=== PATIENT | male | born 1975 | race American Indian/Alaskan Native ===

== ENCOUNTER 2020-11-28 10:29 | Emergency (ER) | payer OTHER ==
[2020-11-28] MEDS ORDERED: ASPIRIN 325 MG TAB PO ONE (10:44)
--- NOTE | 2020-11-28 10:47 | Event Note ---
ED Screening Note ED Screening Note: pt is a 45 yo male who presents to the ED with c/o bilateral shoulder pain that began yesterday evening, he states as the evening progressed the pain moved into the bilateral chest. he states it feels like a pressure with occasional sharp needles. he denies the pain radiating down the arms or into the back. he denies diaphoresis, n/v/d, fever. he states he did not feel short of breath but had to "focus on his breathing due to the pressure in his chest" no known pmhx. no known allergies. non smoker. denies family cardiac hx. This initial assessment/diagnostic orders/clinical plan/treatment(s) is/are subject to change based on patients health status, clinical progression and re- assessment by fellow clinical providers in the ED. Further treatment and workup at subsequent clinical providers discretion. Patient/guardian urged not to elope from the ED as their condition may be serious if not clinically assessed and managed. Initial orders include: cp protocol
--- NOTE | 2020-11-28 11:14 | XRay Report ---
CHEST 2 VIEWS INDICATION / CLINICAL INFORMATION: Chest Pain. COMPARISON: None available. FINDINGS: SUPPORT DEVICES: None. HEART / MEDIASTINUM: No significant abnormality. LUNGS / PLEURA: No significant pulmonary or pleural abnormality. No pneumothorax. ADDITIONAL FINDINGS: No significant additional findings. IMPRESSION: 1. No acute findings. Signer Name: Pipo Hoang MD Signed: 11/28/2020 11:09 AM Workstation Name: [email or web address]
[2020-11-28 11:22] LABS: Basophils # (Auto) 0.1 K/mm3 (0.0-0.1); Basophils % (Auto) 0.8 % (0.0-1.8); Eosinophils # (Auto) 0.2 K/mm3 (0.0-0.4); Eosinophils % (Auto) 1.3 % (0.0-4.3); Hematocrit 41.9 % (35.5-45.6); Hemoglobin 13.8 gm/dl (11.8-15.2); Lymphocytes # (Auto) 3.1 K/mm3 (1.2-5.4); Mean Corpuscular HGB Conc 33 % (32-34); Mean Corpuscular Volume 81 fl (84-94); Monocytes # (Auto) 1.2 K/mm3 (0.0-0.8); Monocytes % (Auto) 10.2 % (0.0-7.3); Platelet Count 343 K/mm3 (140-440); Red Blood Count 5.15 M/mm3 (3.65-5.03); Red Cell Distribution Width 15.1 % (13.2-15.2)
--- NOTE | 2020-11-28 11:22 | Emergency Department Report ---
ED General Adult HPI - General Chief complaint: Chest Pain Stated complaint: CP Time Seen by Provider: 11/28/20 10:44 Source: patient Mode of arrival: Ambulatory Limitations: No Limitations - History of Present Illness Initial comments: Patient is a 45-year-old male with no past medical history presents emergency department for evaluation of pain in both shoulders for the past several days which is worse with positional change. Patient notes vigorous physical activity via a kickball league he runs and Xetal he runs. Patient states he sometimes feels the pain in his chest though this is not exertional nor pleuritic. Patient describes intermittent right calf pain times several months. - Related Data Previous Rx's Medication Instructions Recorded Last Taken Type diazePAM TAB [Valium] 5 mg PO Q8H PRN #10 tab 11/28/20 Unknown Rx Allergies Allergy/AdvReac Type Severity Reaction Status Date / Time No Known Allergies Allergy Unverified 11/28/20 10:39 ED Review of Systems ROS: Stated complaint: CP Other details as noted in HPI Comment: All other systems reviewed and negative ED Past Medical Hx - Past Medical History Previous Medical History?: No - Surgical History Past Surgical History?: No - Social History Smoking Status: Never Smoker Substance Use Type: None - Medications Home Medications: Home Medications Medication Instructions Recorded Confirmed Last Taken Type diazePAM TAB [Valium] 5 mg PO Q8H PRN #10 tab 11/28/20 Unknown Rx ED Physical Exam - General Limitations: No Limitations General appearance: alert, in no apparent distress - Head Head exam: Present: atraumatic, normocephalic - Eye Eye exam: Present: normal appearance - ENT ENT exam: Present: mucous membranes moist - Neck Neck exam: Present: normal inspection - Respiratory Respiratory exam: Present: normal lung sounds bilaterally, other ((+) cough). Absent: respiratory distress - Cardiovascular Cardiovascular Exam: Present: regular rate, normal rhythm. Absent: systolic murmur, diastolic murmur, rubs, gallop - GI/Abdominal GI/Abdominal exam: Present: soft, normal bowel sounds - Rectal Rectal exam: Present: deferred - Extremities Exam Extremities exam: Present: normal inspection - Back Exam Back exam: Present: normal inspection - Neurological Exam Neurological exam: Present: alert, oriented X3 - Psychiatric Psychiatric exam: Present: normal affect, normal mood - Skin Skin exam: Present: warm, dry, intact, normal color. Absent: rash ED Course Vital Signs 02/08/21 02/08/21 02/08/21 11:15 12:15 13:18 Pulse Rate 88 88 82 Respiratory 16 18 17 Rate Blood Pressure 140/93 156/110 129/77 [Left] O2 Sat by Pulse 99 97 99 Oximetry - Reevaluation(s) Reevaluation #1: 11/28/20 13:58 Patient noted to have cough during physical exam, notes cough is of same duration as pain. Reevaluation #2: 11/28/20 13:59 Patient treated with Toradol 30 mg IM x1. On reevaluation, patient in no acute distress. Heart score, PERC rule, x-ray, ultrasound, labs, EKG all reassuring. Advised patient follow-up with primary care physician for reevaluation, noting simultaneous onset of cough may indicate upper respiratory infection causing myalgias and recommended COVID-19 testing. Additionally advised patient may require further imaging of neck or T-spine for persistent discomfort. Advised patient return to the emergency department for any persistent or worsening symptoms. ED Medical Decision Making - Lab Data Result diagrams: 11/28/20 11:01 11/28/20 11:01 Lab Results 11/28/20 11/28/20 Range/Units 11:01 11:01 WBC 11.7 H (4.5-11.0) K/mm3 RBC 5.15 H (3.65-5.03) M/mm3 Hgb 13.8 (11.8-15.2) gm/dl Hct 41.9 (35.5-45.6) % MCV 81 L (84-94) fl MCH 27 L (28-32) pg MCHC 33 (32-34) % RDW 15.1 (13.2-15.2) % Plt Count 343 (140-440) K/mm3 Lymph % (Auto) 27.0 (13.4-35.0) % [place] % (Auto) 10.2 H (0.0-7.3) % Eos % (Auto) 1.3 (0.0-4.3) % Baso % (Auto) 0.8 (0.0-1.8) % Lymph # (Auto) 3.1 (1.2-5.4) K/mm3 [place] # (Auto) 1.2 H (0.0-0.8) K/mm3 Eos # (Auto) 0.2 (0.0-0.4) K/mm3 Baso # (Auto) 0.1 (0.0-0.1) K/mm3 Seg Neutrophils % 60.7 (40.0-70.0) % Seg Neutrophils # 7.1 (1.8-7.7) K/mm3 Sodium 139 (137-145) mmol/L Potassium 3.9 (3.6-5.0) mmol/L Chloride 102.5 (98-107) mmol/L Carbon Dioxide 28 (22-30) mmol/L Anion Gap 12 mmol/L BUN 12 (9-20) mg/dL Creatinine 0.9 (0.8-1.3) mg/dL Estimated GFR > 60 ml/min BUN/Creatinine Ratio 13 % Glucose 100 (75-100) mg/dL Calcium 9.1 (8.4-10.2) mg/dL Total Bilirubin 0.70 (0.1-1.2) mg/dL AST 109 H (5-40) units/L ALT 46 (7-56) units/L Alkaline Phosphatase 90 (35-129) units/L Troponin T < 0.010 (0.00-0.029) ng/mL NT-Pro-B Natriuret Pep 49.47 (0-450) pg/mL Total Protein 7.1 (6.3-8.2) g/dL Albumin 4.3 (3.9-5) g/dL Albumin/Globulin Ratio 1.5 % Vital Signs 11/28/20 11/28/20 11/28/20 11:15 12:15 13:18 Pulse Rate 88 88 82 Respiratory 16 18 17 Rate Blood Pressure 140/93 156/110 129/77 [Left] O2 Sat by Pulse 99 97 99 Oximetry - EKG Data -: EKG Interpreted by Me (Sinus rhythm at 87, no ST-T changes, normal QRS) - Medical Decision Making PERC 0 Critical Care Time: No Critical care attestation.: If time is entered above; I have spent that time in minutes in the direct care of this critically ill patient, excluding procedure time. ED Disposition Clinical Impression: Bilateral shoulder pain, Chest pain, Upper back pain Disposition: - TO HOME OR SELFCARE Is pt being admited?: No Condition: Stable Instructions: Shoulder Pain, Nonspecific Chest Pain, Adult, Chest Pain (ED) Additional Instructions: Follow-up with primary care doctor in 1 to 2 days for reevaluation. Please note further imaging including MRI of your thoracic and/or cervical spine may be required for definitive diagnosis. Return to the emergency department for wors ening symptoms. Prescriptions: diazePAM TAB [Valium] 5 mg PO Q8H PRN #10 tab PRN Reason: Pain , Severe (7-10) Referrals: CATHY FROST MD [Primary Care Provider] - 3-5 Days HEART Score - HEART Score History: Slightly suspicious EKG: Normal Age: 45-65 Risk factors: No known risk factors Troponin: Troponin T < 0.010 ng/mL (0.00-0.029) 11/28/20 11:01 Troponin: < normal limit HEART Score: 1 - Critical Actions Critical Actions: 0-3 pts:0.9-1.7%risk of adverse cardiac event.Candidate for discharge
[2020-11-28 11:54] LABS: Alanine Aminotransferase 46 units/L (7-56); Albumin 4.3 g/dL (3.9-5); BUN/Creatinine Ratio 13; Blood Urea Nitrogen 12 mg/dL (9-20); Calcium 9.1 mg/dL (8.4-10.2); Hemolysis Index 3
[2020-11-28] MEDS ORDERED: KETOROLAC 30 MG/1 ML INJ IM ONE (13:09)
--- NOTE | 2020-11-28 13:10 | Vascular Lab Report ---
Right lower extremity Doppler venous ultrasound INDICATION: Pain FINDINGS: The right common femoral vein, superficial femoral vein and popliteal vein have normal comp ressibility and phasic flow. No echoes are identified. IMPRESSION: No evidence for DVT in the right lower extremity. Signer Name: Luis Antonio Lucio MD Signed: 11/28/2020 1:06 PM Workstation Name: [id number]
[2020-11-28 14:15] VITALS: BP 124/74
== END 2020-11-28 14:15 | disposition home or self-care (01) ==
LOC: ED 10:29
DX: M25.512 Pain in left shoulder (principal); M25.511 Pain in right shoulder; R07.89 Other chest pain; M54.6 Pain in thoracic spine; Z79.899 Other long term (current) drug therapy
CPT/HCPCS: 36415; 71046; 80053; 83880; 84484; 85025; 93005; 93971; 96372; 99284; J1885